=== PATIENT | male | born 1990 | race Caucasian/White ===

== ENCOUNTER → 2017-04-16 | Outpatient (CLI) | payer OTHER ==
[2017-04-17 14:12] LABS: RHEUMATOID FACTOR-SCREEN <15 IU/mL (0-29)
[2017-04-18 02:48] LABS: C-ANCA 10 U/mL (0-99)
== END ==
LOC: COL.LAB 16:34
DX: Z00.5 Encounter for examination of potential donor of organ and tissue (principal)